=== PATIENT | male | born 1995 | race Caucasian/White ===

== ENCOUNTER 2016-05-29 06:33 | Emergency (ER) | payer OTHER, BC ==
[2016-05-29] MEDS ORDERED: TETRACAINE HCL 150 DROP BTL ONE (07:11)
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
[2016-05-29] MEDS ORDERED: NALBUPHINE HCL 20 MG/ML AMPUL IM ONE (08:12)
[2016-05-29] MEDS ORDERED: PROMETHAZINE HCL 25 MG/ML AMPUL IM ONE (08:12)
[2016-05-29 08:14] VITALS: BP 128/84
[2016-05-29] MEDS ORDERED: PROMETHAZINE HCL 25 MG/ML AMPUL ONE (08:15)
[2016-05-29] MEDS ORDERED: NALBUPHINE HCL 20 MG/ML AMPUL ONE (08:15)
[2016-05-29] MEDS ORDERED: [UNRECOGNIZED DRUG - OTHER] TP ONE ×2 (08:23→08:35)
== END 2016-05-29 08:55 | disposition home or self-care (01) ==
LOC: EDSEX 06:33 → ER 06:33 → MERGE 06:33 → ER 08:55
DX: H16.133 Photokeratitis, bilateral (principal); F17.210 Nicotine dependence, cigarettes, uncomplicated

== ENCOUNTER 2016-08-13 10:59 | Emergency (ER) | payer BC, MEDICAID ==
[2016-08-13 11:16] VITALS: BP 126/77
--- NOTE | 2016-08-13 12:54 | ERNOTE ---
Date of Service: 08/13/16 Time Seen by Provider: 08/13/16 12:36 Stated Complaint: SOB OF BREATHING WHEN ACTIVE Source: patient Exam Limitations: no limitations Immunizations: IMMUNIZATION HX Immunizations Up to Date Yes History of Influenza Vaccine No Hx Pneumococcal Vaccination No Allergies/Adverse Reactions: Allergies amoxicillin [Amoxicillin] Allergy (Verified 08/13/16 11:19) Rash nalbuphine HCl [From Nubain] Adverse Reaction (Severe, Verified 08/13/16 11:19) Other Home Medications: HOME MEDICATIONS Albuterol Sulfate [Ventolin HFA] 1 puff IH PRN 03/17/16 [Last Taken Unknown] Albuterol Sulfate [Ventolin Hfa] 2 puff IH Q4H PRN #1 inhaler 08/13/16 [Last Taken Unknown] - History of Present Ilness Narrative: Pt. comes in with c/o asthma symptoms for a month. Pt. usually needs his inhaler more often in the spring and when he went to use it on Saturday it would not work and he has had an intermittent asthma attack once a day since Saturday. Pt. denies any recent illness bur has increased nasal rhinorrhea due to allergies. Pt. denies any SOB or wheezing at this time. Review of Systems - Review of Systems Constitutional: Present: no symptoms reported. Absent: recent illness, fever, chills, weakness, fatigue EYE: Present: no symptoms reported ENT: Present: no symptoms reported. Absent: nose pain, nose congestion, nasal drainage Respiratory: Present: wheezing - occasionally. Absent: shortness of breath, cough Cardiology: Present: no symptoms reported. Absent: chest pain, palpitations, edema Gastrointestinal/Abdominal: Present: no symptoms reported. Absent: nausea, vomiting, diarrhea, abdominal pain Genitourinary: Present: no symptoms reported Musculoskeletal: Present: no symptoms reported. Absent: back pain, joint pain Skin: Present: no symptoms reported Neurological: Present: no symptoms reported. Absent: headache, dizziness/light- headedness, numbness, tingling All Other Systems: All systems neg except as marked - Patient's Past Medical History Patient History - Medical: No pertinent hx Patient History - Cardiac/Respiratory: Asthma Patient History - Cancer: No Hx of Cancer Patient History - Surgical Procedures: No surgical history Patient History - Other: None - Social History Living Situations: spouse Abuse History: No History of abuse Psych History: No pertinent hx Does anyone smoke in the home?: Yes Alcohol Use: heavy Drug Use: none - Immunizations Immunizations Up to Date: Yes Hx Pneumococcal Vaccination: No History of Influenza Vaccine: No Physical Exam - Physical Exam General Appearance: Present: wd/wn, alert, no apparent distress Eye Exam: Normal inspection: bilateral, PERRL: bilateral, EOMI: bilateral Ears, Nose, Throat: Present: normal ENT inspection, normal pharynx Neck: Present: normal inspection, nontender. Absent: lymphadenopathy (R), lymphadenopathy (L) Respiratory: Present: no respiratory distress, normal breath sounds, no accessory muscle use, chest nontender, lungs clear Cardiovascular/Chest: Present: regular rate, rhythm, no murmur, normal peripheral pulses Gastrointestinal/Abdominal: Present: normal bowel sounds, nontender, nondistended, soft, no organomegaly Back Exam: Present: normal inspection, normal range of motion, no CVA tenderness , no vertebral tenderness Extremity Exam: Present: normal inspection, non-tender, normal range of motion, no edema Neurological Exam: Present: alert, oriented, normal mood/affect, no motor/ sensory deficits, 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 Absent: pallor, skin rash ED Progress - Date and Time Seen: Date and Time: 08/13/16 12:48 cleaned pt's inhaler and activated it and it worked. Will refer to new PCP of pt choice but will send Albuterol inhaler to pharmacy as pt. has been on for LT use. Will also recommend pt. to start on Claratin or zyrtec for seasonal allergies. - Vital Signs Patient's Vital Signs:: I have reviewed the patient's vital signs. Vital Signs: Vital Signs 08/13/16 11:13 Temperature 36.8 C Pulse Rate 71 Respiratory 13 Rate Blood Pressure 126/77 O2 Sat by Pulse 99 Oximetry - Progress/Reassessment Chief Complaint: Upper Respiratory Symptoms Departure - Departure Clinical Impression: Allergic asthma Qualifiers: Asthma severity: mild intermittent Asthma complication type: uncomplicated Qualified Code(s): J45.20 - Mild intermittent asthma, uncomplicated Disposition: Home self-care Condition: Good Instructions: Form - Asthma Action Plan, Adult Additional Instructions: Please follow up with primary provider of your choice and start on Claratin for allergies. Prescriptions: Albuterol Sulfate [Ventolin Hfa] 2 puff IH Q4H PRN #1 inhaler PRN Reason: Shortness Of Breath
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
== END 2016-08-13 12:59 | disposition home or self-care (01) ==
LOC: ER 10:59
DX: J45.20 Mild intermittent asthma, uncomplicated (principal)

== ENCOUNTER 2016-09-03 09:55 | Emergency (ER) | payer BC ==
[2016-09-03 10:09] VITALS: BP 114/61
--- NOTE | 2016-09-03 10:15 | ERNOTE ---
Date of Service: 09/03/16 Time Seen by Provider: 09/03/16 10:12 Stated Complaint: URI Presenting Symptoms:: cough Source: patient, RN notes reviewed Exam Limitations: no limitations Immunizations: IMMUNIZATION HX Immunizations Up to Date Yes History of Influenza Vaccine No Hx Pneumococcal Vaccination No Allergies/Adverse Reactions: Allergies amoxicillin [Amoxicillin] Allergy (Verified 09/03/16 10:09) Rash nalbuphine HCl [From Nubain] Adverse Reaction (Severe, Verified 09/03/16 10:09) Other Home Medications: HOME MEDICATIONS Albuterol Sulfate [Ventolin HFA] 1 puff IH PRN 03/17/16 [Last Taken Unknown] Albuterol Sulfate [Ventolin Hfa] 2 puff IH Q4H PRN #1 inhaler 08/13/16 [Last Taken Unknown] Cetirizine HCl [Allergy Relief] 10 mg PO DAILY #30 tablet 09/03/16 [Last Taken Unknown] predniSONE [Prednisone] 2 tab PO DAILY #14 tab 09/03/16 [Last Taken Unknown] - History of Present Ilness Narrative: 21 y/o male ambulatory to the ED for a cough that began 3 nights ago. He has asthma and seasonal allergies, but is not on any routine medications for these. He reports having to use his inhaler a few times in the past week. He denies any sick contacts. Date (Duration): 08/31/16 Frequency/Possible Cause: Reports: unknown cause Associated Symptoms: Reports: chest pain/soreness, cough, wheezing, nasal congestion, nasal drainage, headache, sore throat, muscle aches, fever/chills. Denies: shortness of breath, facial pain, dizziness, lightheadedness, earache Prior Treatment: Denies: recently seen Review of Systems - Review of Systems Constitutional: Present: fever, chills, fatigue, malaise. Absent: recent illness EYE: Present: no symptoms reported ENT: Present: nose congestion, nasal drainage, sore throat. Absent: ear pain, ear discharge, throat swelling Respiratory: Present: cough, wheezing. Absent: shortness of breath, orthopnea Cardiology: Absent: palpitations, syncope Gastrointestinal/Abdominal: Present: nausea. Absent: vomiting, abdominal pain Genitourinary: Present: no symptoms reported Musculoskeletal: Present: muscle pain. Absent: joint pain, joint swelling Skin: Absent: rash, lesions Neurological: Present: headache. Absent: dizziness/light-headedness Endocrine: Present: no symptoms reported Hematologic/Lymphatic: Present: no symptoms reported - Patient's Past Medical History Patient History - Medical: No pertinent hx Patient History - Cardiac/Respiratory: Asthma Patient History - Cancer: No Hx of Cancer Patient History - Surgical Procedures: No surgical history Patient History - Other: None - Social History Living Situations: spouse Abuse History: No History of abuse Psych History: No pertinent hx Does anyone smoke in the home?: Yes Smoking Status: Former smoker Have you smoked in the past 12 months: No Alcohol Use: heavy Drug Use: none - Immunizations Immunizations Up to Date: Yes Hx Pneumococcal Vaccination: No History of Influenza Vaccine: No Physical Exam - Physical Exam General Appearance: Present: wd/wn, alert, no apparent distress, other - appears to be mildly uncomfortable, pleasant, appropriately dressed/groomed Eye Exam: Normal inspection: bilateral Ears, Nose, Throat: Present: nasal congestion, sinus pain/drainage, pharyngeal erythema. Absent: hearing decreased, abnormal TM (R), abnormal TM (L), pharyngeal swelling, tonsillar exudate, tonsillar swelling, dry mucous membranes Neck: Present: normal inspection, nontender, supple Respiratory: Present: no respiratory distress, no accessory muscle use, lungs clear, expiration (prolonged). Absent: rhonchi, wheezing Cardiovascular/Chest: Present: regular rate, rhythm, no murmur Neurological Exam: Present: alert, oriented, normal mood/affect Skin Exam: Present: normal color, warm/dry ED Progress - Vital Signs Patient's Vital Signs:: I have reviewed the patient's vital signs. Vital Signs: Vital Signs 09/03/16 10:01 Temperature 37.0 C Pulse Rate 103 H Respiratory 14 Rate Blood Pressure 114/61 O2 Sat by Pulse 98 Oximetry - Progress/Reassessment Chief Complaint: Cough Progress:: Unchanged Plan - Plan Plan: Has albuterol inhaler and nebulizer at home. Will start prednisone and Zyrtec. Work excuse given for today and tomorrow. Departure - Departure Clinical Impression: Upper respiratory infection, viral, Asthma exacerbation, mild Allergic rhinitis Qualifiers: Allergic rhinitis trigger: unspecified Allergic rhinitis seasonality: seasonal Qualified Code(s): J30.2 - Other seasonal allergic rhinitis Disposition: Home Follow Up Needed Condition: Good Instructions: Upper Respiratory Infection, Adult, [id number], Form - Excuse from Work, School, or Physical Activity Additional Instructions: Nasal saline spray as needed Humidifier Motrin for pain/fever Take Zyrtec at bedtime and prednisone in the mornings with food Follow up with your doctor if you have not improved by the end of the week Prescriptions: Cetirizine HCl [Allergy Relief] 10 mg PO DAILY #30 tablet predniSONE [Prednisone] 2 tab PO DAILY #14 tab
--- OUTSIDE RECORDS SUMMARY | 2016-09-03 10:31 | XMS REPORT | Continuity of Care Document ---
:1995 Author Organization [facility] ([facility]) [place] [address] Phone [phone] Care Team Providers Name Role Phone Chencho Rock Primary Care Provider [phone] Source Comments This disclosure is being made pursuant to the Care Everywhere program, applicable federal and state laws, and may not contain all informaitonavailable regarding this patient.[facility] ([facility]) Active Allergies and Adverse Reactions Allergen Noted [...]
== END 2016-09-03 10:42 | disposition home or self-care (01) ==
LOC: ER 09:55
DX: J06.9 Acute upper respiratory infection, unspecified (principal); B97.89 Other viral agents as the cause of diseases classified elsewhere; J30.2 Other seasonal allergic rhinitis; J45.901 Unspecified asthma with (acute) exacerbation; Z87.891 Personal history of nicotine dependence